=== PATIENT | male | born 1975 | race Caucasian/White ===

== ENCOUNTER 2023-03-12 16:00 | Inpatient (IN) | payer OTHER ==
[2023-03-12 16:31] VITALS: BMI 28.7
[2023-03-12] MEDS ORDERED: BISMUTH SUBSALICYLATE 524 MG/30 ML PO PRN (17:58)
[2023-03-12] MEDS ORDERED: BENZONATATE 200 MG CAPSULE PO PRN (17:58)
[2023-03-12] MEDS ORDERED: ACETAMINOPHEN 325 MG TABLET (FP) PO PRN (17:58)
[2023-03-12] MEDS ORDERED: DICYCLOMINE HCL 10 MG CAPSULE PO PRN (17:58)
[2023-03-12] MEDS ORDERED: guaiFENesin 600 MG TABLET.ER (FP) PO PRN (17:58)
[2023-03-12] MEDS ORDERED: NALOXONE HCL 0.4 MG/ML VIAL IM PRN (17:58)
[2023-03-12] MEDS ORDERED: MAGNESIUM HYDROX 2400MG/30ML ORAL SUSPENSION 30 ML CUP PO PRN (17:58)
[2023-03-12] MEDS ORDERED: BENZOCAINE/MENTHOL (CHLORASEPTIC ) LOZENGE MM PRN (17:58)
[2023-03-12] MEDS ORDERED: IBUPROFEN 600 MG TABLET (FP) PO PRN (17:58)
[2023-03-12] MEDS ORDERED: LOPERAMIDE HCL 2 MG CAPSULE PO PRN (17:58)
[2023-03-12] MEDS ORDERED: NALOXONE HCL (KLOXXADO) 8 MG SPRAY NS PRN (17:58)
[2023-03-12] MEDS ORDERED: IBUPROFEN 400 MG TABLET (FP) PO PRN (17:58)
[2023-03-12] MEDS ORDERED: P-EPHED 60MG/TRIPROLIDI 2.5MG TABLET PO PRN (17:58)
[2023-03-12] MEDS ORDERED: POLYETHYLENE GLYCOL (HEALTHYLAX) 3350 17 GM PACKET PO PRN (17:58)
[2023-03-12] MEDS ORDERED: ONDANSETRON *ODT* 4 MG TABLET SL PRN (17:58)
[2023-03-12] MEDS ORDERED: TRIMETHOBENZAMIDE HCL 200MG/2ML INJ IM ONE (18:00)
[2023-03-12] MEDS ORDERED: diazePAM 5 MG TABLET PO PRN (18:00)
[2023-03-12] MEDS ORDERED: diazePAM 5 MG TABLET PO ONE (18:00)
[2023-03-12] MEDS ORDERED: diazePAM 5 MG TABLET ONE (19:47)
[2023-03-12] MEDS: MELATONIN 5 MG TABLETS PO PRN (22:32)
[2023-03-12] MEDS: hydrOXYzine PAMOATE 25 MG CAPSULE (FP) PO PRN (22:32)
[2023-03-12] MEDS: THIAMINE HCL 100 MG TABLET (FP) PO SCH (22:32)
[2023-03-12] MEDS: diazePAM 5 MG TABLET PO SCH (22:33)
[2023-03-13] MEDS: diazePAM 5 MG TABLET PO SCH ×4 (05:36→22:19)
[2023-03-13] MEDS: PRENATAL VITAMINS W/ FOLIC ACID TABLET (FP) PO SCH (10:07)
[2023-03-13] MEDS: METHOCARBAMOL 500 MG TABLET PO PRN (10:08)
[2023-03-13 11:35] LABS: HEMATOCRIT 39.6 % (35.4-49); HEMOGLOBIN 13.5 GM/dL (11.7-16.9); MCH 28.5 pg (25.7-33.7); MCHC 34.1 g/dl (32.0-35.9); MEAN CELL VOLUME 83.7 fl (80-96); MEAN PLT VOLUME 9.3 fl (7.5-11.1); PLATELET COUNT 107 10^3/uL (134-434); POTASSIUM 3.9 mmol/L (3.5-5.1); RBC 4.73 M/mm3 (4.00-5.60); WHITE BLOOD COUNT 3.2 K/mm3 (4.0-10.0)
[2023-03-13 11:38] LABS: CALCIUM 8.9 mg/dL (8.5-10.1)
[2023-03-13 11:39] LABS: ALBUMIN 3.7 g/dl (3.4-5.0); BLOOD UREA NITROGEN 19.3 mg/dL (7-18)
[2023-03-13 11:42] LABS: CREATININE 1.1 mg/dL (0.55-1.3)
[2023-03-13 11:43] LABS: BILIRUBIN,TOTAL 0.8 mg/dL (0.2-1); TOT PROT 7.2 g/dl (6.4-8.2)
[2023-03-13] MEDS: MELATONIN 5 MG TABLETS PO PRN (22:18)
[2023-03-13] MEDS: THIAMINE HCL 100 MG TABLET (FP) PO SCH (22:18)
[2023-03-14] MEDS: diazePAM 5 MG TABLET PO SCH ×3 (05:29→22:09)
[2023-03-14] MEDS: PRENATAL VITAMINS W/ FOLIC ACID TABLET (FP) PO SCH (09:21)
[2023-03-14] MEDS: METHOCARBAMOL 500 MG TABLET PO PRN (22:08)
[2023-03-14] MEDS: THIAMINE HCL 100 MG TABLET (FP) PO SCH (22:08)
[2023-03-14] MEDS: MELATONIN 5 MG TABLETS PO PRN (22:09)
[2023-03-15] MEDS: diazePAM 5 MG TABLET PO SCH ×2 (05:28→17:07)
[2023-03-15] MEDS: LEVOTHYROXINE NA 100 MCG TABLET (FP) PO SCH (08:51)
[2023-03-15] MEDS: PRENATAL VITAMINS W/ FOLIC ACID TABLET (FP) PO SCH (09:22)
[2023-03-15] MEDS: THIAMINE HCL 100 MG TABLET (FP) PO SCH (22:14)
[2023-03-15] MEDS: MAG HYDROX/AL HYDROX/SIMETH 30 ML UNIT-DOSE CUP PO PRN (22:14)
[2023-03-15] MEDS: MELATONIN 5 MG TABLETS PO PRN (22:14)
[2023-03-16] MEDS ORDERED: diazePAM 5 MG TABLET PO ONE (06:00)
[2023-03-16] MEDS: LEVOTHYROXINE NA 100 MCG TABLET (FP) PO SCH (06:13)
[2023-03-16] MEDS: PRENATAL VITAMINS W/ FOLIC ACID TABLET (FP) PO SCH (10:00)
[2023-03-16] MEDS: MELATONIN 5 MG TABLETS PO PRN (22:10)
[2023-03-16] MEDS: THIAMINE HCL 100 MG TABLET (FP) PO SCH (22:11)
[2023-03-16] MEDS: METHOCARBAMOL 500 MG TABLET PO PRN (22:11)
[2023-03-16] MEDS: MAG HYDROX/AL HYDROX/SIMETH 30 ML UNIT-DOSE CUP PO PRN (22:12)
[2023-03-16] MEDS: hydrOXYzine PAMOATE 25 MG CAPSULE (FP) PO PRN (22:13)
[2023-03-17] MEDS: LEVOTHYROXINE NA 100 MCG TABLET (FP) PO SCH (06:04)
[2023-03-17 09:22] VITALS: BP 126/82; PULSE 84; RESP 16; TEMP 98.2
== END 2023-03-17 09:10 | disposition home or self-care (01) | DRG 775 ==
LOC: YASAS 16:00 → Y3N 19:30
PROVIDERS: ADMIT Allergy & Immunology; ATTEND Surgery
PROC: HZ2ZZZZ Detoxification Services for Substance Abuse Treatment (ICD-10-PCS; principal; 2023-03-12)
DX: F10.230 Alcohol dependence with withdrawal, uncomplicated (principal); E89.0 Postprocedural hypothyroidism; K21.9 Gastro-esophageal reflux disease without esophagitis
CPT/HCPCS: 36415; 80053; 85027; 86780; 87635